=== PATIENT | male | born 1945 | race Caucasian/White ===

== ENCOUNTER 2023-04-12 14:27 | Outpatient (CLI) | payer MEDICARE, BC ==
[~2023-04-12 14:27] MED LIST: Iopamidol 370 76% 100 ML VIAL ONE
== END 2023-04-12 14:28 | disposition home or self-care (01) ==
LOC: BICCT 14:27
PROVIDERS: ATTEND Physician Assistant
DX: I71.20 Thoracic aortic aneurysm, without rupture, unspecified (principal)
CPT/HCPCS: 71275; 82565